=== PATIENT | male | born 1945 | race Caucasian/White ===

== ENCOUNTER 2023-10-25 09:11 | Emergency (ER) | payer OTHER, SELFPAY ==
[2023-10-25 09:14] VITALS: BP 175/89; PULSE 94; TEMP 36.7; O2SAT 97; BMI 26.1
--- NOTE | 2023-10-25 09:22 | ED_ITS ---
HPI HPI - General Adult General Chief complaint: Skin/Abscess/Foreign Body Stated complaint: FACIAL SWELLING Time Seen by Provider: 10/25/23 09:13 Source: patient Mode of arrival: walk-in Limitations: no limitations History of Present Illness HPI narrative: 78-year-old male presents for swelling to his left lower jaw which started this morning. He states it does not hurt at all, it is just swollen and it is continuous. No difficulty breathing or swallowing. No new medications. He does not seem to have any dental pain. Related Data Home Medications ?Medication ?Instructions ?Recorded ?Confirmed finasteride 5 mg tablet 5 mg PO DAILY 10/25/23 10/25/23 lisinopril 20 mg tablet 20 mg PO DAILY 10/25/23 10/25/23 metoprolol tartrate 25 mg tablet 12.5 mg PO BID 10/25/23 10/25/23 mirtazapine 15 mg tablet 15 mg PO DAILY 10/25/23 10/25/23 simvastatin 10 mg tablet 10 mg PO QPM 10/25/23 10/25/23 Previous Rx's ?Medication ?Instructions ?Recorded penicillin V potassium 250 mg 250 mg PO QID 10 days #40 tabs 10/25/23 tablet Allergies Allergy/AdvReac Type Severity Reaction Status Date / Time No Known Drug Allergies Allergy Verified 10/25/23 09:14 Opioid HPI Opioid Management Most Recent Opioid Data: No Data to Display Review of Systems ROS Narrative A ten point review of systems is negative except as noted above. Exam Narrative Exam Narrative: Nurses note and vital signs reviewed and patient is not hypoxic. General: The patient appears well and in no apparent distress. Patient is resting comfortably on cart. Skin: Warm, dry, no pallor noted. There is no rash noted. Head: Normocephalic, atraumatic Eye: Normal conjunctiva, no drainage Ears, Nose, Mouth, and Throat: oral mucosa is moist. Nares patent. Most of his teeth are missing but there is obvious dental decay in the left lower most posterior tooth. No swelling to the floor of his mouth. His left lower lip is edematous laterally. There is swelling along the left jaw area. Cardiovascular: Regular Rate and Rhythm Respiratory: Patient is in no distress, no accessory muscle use, lungs are clear to auscultation, no wheezing, rales or rhonchi Back: non-tender GI: Normal bowel sounds, no tenderness to palpation, no masses appreciated. No rebound, guarding, or rigidity noted. Musculoskeletal: The patient has no evidence of calf tenderness, no pitting edema, symmetrical pulses noted bilaterally Neurological: A&O, normal speech Psychiatric: Cooperative Constitutional Vital Signs, click to edit/add: Last Vital Signs Temp 98.0 F 10/25/23 09:14 Pulse 94 H 10/25/23 09:14 Resp 18 10/25/23 09:14 BP 175/89 H 10/25/23 09:14 Pulse Ox 97 10/25/23 09:14 Course Vital Signs Vital signs: Vital Signs Temperature 98.0 F 10/25/23 09:14 Pulse Rate 94 H 10/25/23 09:14 Respiratory Rate 18 10/25/23 09:14 Blood Pressure 175/89 H 10/25/23 09:14 Pulse Oximetry 97 10/25/23 09:14 Temperature 98.0 F 10/25/23 09:14 Pulse Rate 94 H 10/25/23 09:14 Respiratory Rate 18 10/25/23 09:14 Blood Pressure 175/89 H 10/25/23 09:14 Pulse Oximetry 97 10/25/23 09:14 Medical Decision Making MDM Narrative Medical decision making narrative: CT Skin: Shows stranding but no abscess. He was given IV Unasyn and discharged home on prednisone and instructed to have follow-up with his dentist. Treatment diagnosis and follow-up were discussed with the patient. Lab Data Lab results reviewed: Yes I reviewed the patient's lab results Labs: Lab Results 10/25/23 Range/Units 09:30 WBC 7.9 (4.0-11.0) 10^3/uL RBC 4.91 (4.70-6.10) 10^6/uL Hgb 15.4 (14.0-18.0) g/dL Hct 45.9 (42.0-54.0) % MCV 93.5 (80.0-94.0) fL MCH 31.4 (25.9-34.0) pg MCHC 33.6 (29.9-35.2) g/dL RDW 12.8 (11.0-15.0) % Plt Count 208 (150-450) 10^3/uL MPV 12.0 (9.5-13.5) fL Neut % (Auto) 48.2 (43.0-75.0) % Lymph % (Auto) 40.3 (20.5-60.0) % [place] % (Auto) 8.7 (1.7-12.0) % Eos % (Auto) 1.4 (0.9-7.0) % Baso % (Auto) 0.5 (0.2-2.0) % Neut # (Auto) 3.8 (1.4-6.5) 10^3/uL Lymph # (Auto) 3.2 (1.2-3.8) 10^3/uL [place] # (Auto) 0.7 (0.3-0.8) 10^3/uL Eos # (Auto) 0.1 (0.0-0.7) 10^3/uL Baso # (Auto) 0.0 (0.0-0.1) 10^3/uL Abs Immat Gran (auto) 0.07 H (0.00-0.03) 10^3/uL Imm/Tot Granulo (auto) 0.9 H (0.0-0.5) % Sodium 131 L (136-145) mmol/L Potassium 4.7 (3.5-5.1) mmol/L Chloride 97 L (98-107) mmol/L Carbon Dioxide 23.7 (21.0-32.0) mmol/L Anion Gap 15.0 BUN 21.0 H (7.0-18.0) mg/dL Creatinine 1.32 H (0.70-1.30) mg/dL Est GFR ( Amer) >60 (>=60) Est GFR (Non-Af Amer) 52 L (>=60) BUN/Creatinine Ratio 15.9 Glucose 118 H (74-106) mg/dL Calcium 9.0 (8.5-10.1) mg/dL Imaging Data CT facial bones: Radiologist's impression: ITS Impressions Facial Bones CT 10/25/23 10:18 IMPRESSION: Left facial soft tissue swelling consistent with cellulitis. No focal abscess is observed Electronically authenticated by: TAMMY RUBIO Date: 10/25/2023 10:53 Discharge Plan Discharge Stand Alone Forms: Portal Instructions Chief Complaint: Skin/Abscess/Foreign Body Clinical Impression: Dental infection Patient Disposition: Home, Self-Care Time of Disposition Decision: 11:33 Condition: Good Mode of Transportation: Private Vehicle Prescriptions / Home Meds: New penicillin V potassium 250 mg tablet 250 mg PO QID 10 Days Qty: 40 0RF No Action finasteride 5 mg tablet 5 mg PO DAILY simvastatin 10 mg tablet 10 mg PO QPM metoprolol tartrate 25 mg tablet 12.5 mg PO BID mirtazapine 15 mg tablet 15 mg PO DAILY lisinopril 20 mg tablet 20 mg PO DAILY Print Language: Albanian Instructions: Cellulitis (ED) Referrals: Physician,Non-Staff, MD [Primary Care Provider] - 1 week
[2023-10-25 09:58] LABS: Basophils Percent Auto 0.5 % (0.2-2.0); Eosinophils Absolute Auto 0.1 10^3/uL (0.0-0.7); Eosinophils Percent Auto 1.4 % (0.9-7.0); Hematocrit 45.9 % (42.0-54.0); Hemoglobin 15.4 g/dL (14.0-18.0); Immature Granulocytes Abs Auto 0.07 10^3/uL (0.00-0.03); Immature Granulocytes Pct Auto 0.9 % (0.0-0.5); Lymphocytes Absolute Auto 3.2 10^3/uL (1.2-3.8); Lymphocytes Percent Auto 40.3 % (20.5-60.0); Mean Corpuscular HGB Conc 33.6 g/dL (29.9-35.2); Mean Corpuscular Hemoglobin 31.4 pg (25.9-34.0); Mean Corpuscular Volume 93.5 fL (80.0-94.0); Monocytes Absolute Auto 0.7 10^3/uL (0.3-0.8); Monocytes Percent Auto 8.7 % (1.7-12.0); Neutrophils Absolute Auto 3.8 10^3/uL (1.4-6.5); Neutrophils Percent Auto 48.2 % (43.0-75.0); Platelet Count 208 10^3/uL (150-450); Red Blood Count 4.91 10^6/uL (4.70-6.10); Red Cell Distribution Width 12.8 % (11.0-15.0); White Blood Count 7.9 10^3/uL (4.0-11.0)
[2023-10-25 10:04] LABS: BUN Creatinine Ratio 15.9; Carbon Dioxide 23.7 mmol/L (21.0-32.0); Chloride 97 mmol/L (98-107); Estimated GFR (African America >60 (>=60); Estimated GFR (Non-African Ame 52 (>=60); Glucose 118 mg/dL (74-106); Potassium 4.7 mmol/L (3.5-5.1); Sodium 131 mmol/L (136-145)
--- NOTE | 2023-10-25 10:18 | CT_ITS ---
The [address] [address] Patient Name: RACHEL NAGY MRN: [id number] date: 1945 Sex: M Assigned Patient Location: ER Current Patient Location: ED.MAIN Accession/Order Number: [id number] Exam Date: 10/25/2023 10:13 Report Date: 10/25/2023 10:53 At the request of: JESSIE ZAZEUTA Procedure: CT facial bones w con EXAMINATION: CT facial bones w con HISTORY: Swelling to left jaw, possible dental abscess COMPARISON: No relevant comparison available. TECHNIQUE: Axial, Coronal, and Sagittal CT images created with IV contrast. Dose reduction techniques were achieved by using automated exposure control and/or adjustment of mA and/or kV according to patient size and/or use of iterative reconstruction technique. FINDINGS: FACIAL BONES: No bony lesion or fracture. SINUSES: No visible mass, significant fluid or mucosal thickening. NASAL FOSSA: No mass, fracture, or significant septal deviation. SKULL BASE: No mass or bone destruction. ORBITS: No visible mass, hematoma, edema or fracture. CAVERNOUS SINUS: No visible lesion, symmetric appearance. SALIVARY GLANDS: No mass. Unremarkable parotid and submandibular glands. OTHER: Asymmetric moderate left facial soft tissue swelling extending from the mid line to the left parotid gland involving the maxilla mandible extending to the inferior nose. Associated skin thickening and subcutaneous stranding is noted with no focal fluid collection to suggest an abscess CT/CT facial bones w con IMPRESSION: Left facial soft tissue swelling consistent with cellulitis. No focal abscess is observed Electronically authenticated by: TAMMY RUBIO Date: 10/25/2023 10:53
[2023-10-25] MEDS: AMPICILLIN SODIUM/SULBACTAM NA 1.5 GM in 0.9 % SODIUM CHLORIDE 50 ML IV (11:25)
[2023-10-25 12:03] VITALS: BP 133/76; PULSE 74; O2SAT 97
== END 2023-10-25 12:05 | disposition home or self-care (01) ==
PROVIDERS: Emergency Provider Emergency Medicine
DX: K04.7 Periapical abscess without sinus (principal); Z79.899 Other long term (current) drug therapy
CPT/HCPCS: 36415; 70487; 80048; 85025; 96374; 99285; Q9967

== ENCOUNTER 2023-12-16 23:33 | Emergency (ER) | payer OTHER, SELFPAY ==
[2023-12-16 23:36] VITALS: BP 163/102; PULSE 83; TEMP 36.7; O2SAT 96; BMI 26.5
[2023-12-16 23:40] VITALS: BP 163/102
[2023-12-16 23:45] VITALS: PULSE 80
--- NOTE | 2023-12-16 23:45 | ECG_ITS ---
The [facility] Test Date: 2023-12-16 Pat Name: RACHEL NAGY Department: Room: - Gender: Male Patient Access Registrar: : 1945 Requested By: [id number] Order Number: [id number] Reading MD: ANNALEE TORREZ Measurements Intervals [place] Rate: 75 P: 68 GA: 164 QRS: 62 QRSD: 76 T: 62 QT: 390 QTc: 419 Interpretive Statements 1100 Sinus rhythm 1102 Sinus arrhythmia 9110 normal ECG Compared to ECG 11/11/2020 09:44:38 No significant changes Electronically Signed On 12-17-2023 6:55:24 EDT by ANNALEE TORREZ
[2023-12-16 23:50] VITALS: PULSE 77
--- NOTE | 2023-12-16 23:53 | CT_ITS ---
The [address] [address] Patient Name: RACHEL NAGY MRN: [id number] date: 1945 Sex: M Assigned Patient Location: ER Current Patient Location: ER Accession/Order Number: [id number] Exam Date: 12/16/2023 23:59 Report Date: 12/17/2023 00:39 At the request of: TOMMY CARRASCO Procedure: CT head/brain wo con INDICATION: 78 years old; Male. Onset of vertigo with prior history of vertigo. TECHNIQUE: CT Head (ax/cor/sag reformats). Ionizing radiation dose reduced via iterative reconstruction/FBP blend and body size kV/mA adjustment. Comparison: None FINDINGS: POSTOPERATIVE CHANGES: None. BRAIN PARENCHYMA: No intraparenchymal or extra-axial hemorrhage. No mass effect. No midline shift or herniation. Subtle patchy low-density in the white matter without mass effect. VENTRICLES/EXTRA-AXIAL SPACES: Enlarged, consistent with atrophy. SINUSES/MASTOIDS: Mucoperiosteal thickening is seen within ethmoid sinuses on the left. Maxillary sinuses are not completely included. Lisa bullosa bilaterally. Mastoids and middle ears are clear. MSK: No displaced or depressed calvarial fracture. OTHER: No hyperdense intraluminal thrombus. Vascular calcifications are present. Degenerative changes are present in the temporomandibular joints. CT/CT head/brain wo con IMPRESSION: 1. No acute intracranial abnormality. No hemorrhage or mass effect. 2. Nonspecific white matter changes. 3. Atrophy. 4. Vascular calcification. Electronically authenticated by: CAREY JOSEPH Date: 12/17/2023 00:39
--- NOTE | 2023-12-16 23:55 | ED_ITS ---
HPI - Dizziness General Chief Complaint: Dizziness Stated Complaint: DIZZY Time Seen by Provider: 12/16/23 23:46 Source: patient Mode of arrival: walk-in Limitations: no limitations History of Present Illness HPI Narrative: history of vertigo about 6 years ago. Tonight while laying down in bed room spins. feels better sitting up. no headache, ear pain or vision complaint. No weakness of the upper or lower extremities. No fever Related Data Home Medications ?Medication ?Instructions ?Recorded ?Confirmed finasteride 5 mg tablet 5 mg PO DAILY 10/25/23 12/16/23 lisinopril 20 mg tablet 20 mg PO DAILY 10/25/23 12/16/23 metoprolol tartrate 25 mg tablet 12.5 mg PO BID 10/25/23 12/16/23 mirtazapine 15 mg tablet 15 mg PO DAILY 10/25/23 10/25/23 simvastatin 10 mg tablet 10 mg PO QPM 10/25/23 12/16/23 Allergies Allergy/AdvReac Type Severity Reaction Status Date / Time No Known Drug Allergies Allergy Verified 12/16/23 23:43 Review of Systems ROS Status of ROS 10 or more systems reviewed and unremark able except as noted in history and below Exam Constitutional Vital Signs, click to edit/add: Last Vital Signs Temp 98.1 F 12/16/23 23:36 Pulse 83 12/16/23 23:36 Resp 18 12/16/23 23:36 BP 163/102 H 12/16/23 23:36 Pulse Ox 96 12/16/23 23:36 O2 Del Method Room Air 12/16/23 23:36 Common normals: no apparent distress, average body habitus, oriented x3, no limitations, healthy appearing, alert and well nourished [facility] Common normals: normocephalic and head/scalp atraumatic Eye Common normals: EOMs intact bilaterally and conjunctivae normal Respiratory Common normals: normal respiratory effort, no retractions, no use of accessory muscles and clear to auscultation bilaterally Cardio Common normals: regular rate, regular rhythm, S1 normal heart sound and S2 normal heart sound GI Common normals: Normal to inspection, nondistended, normoactive bowel sounds present Extremity Common normals: normal to inspection and full ROM Neuro Common normals: oriented x3, CN's II-XII intact bilaterally and moves all extremities Psych Appearance: grossly normal Course Vital Signs Vital signs: Vital Signs Temperature 98.1 F 12/16/23 23:36 Pulse Rate 83 12/16/23 23:36 Respiratory Rate 18 12/16/23 23:36 Blood Pressure 163/102 H 12/16/23 23:36 Pulse Oximetry 96 12/16/23 23:36 Oxygen Delivery Method Room Air 12/16/23 23:36 Temperature 98.1 F 12/16/23 23:36 Pulse Rate 83 12/16/23 23:36 Respiratory Rate 18 12/16/23 23:36 Blood Pressure 163/102 H 12/16/23 23:36 Pulse Oximetry 96 12/16/23 23:36 Oxygen Delivery Method Room Air 12/16/23 23:36 MDM - Dizziness MDM Narrative Medical decision making narrative: presents with vertiginous dizziness that is reproducible when he lays down. able to sit up and symptoms are better. No headache or ear pain. exam neg. CT brain without acute findings . labs acceptable and no findings that would explain symptoms. Treated for vertigo and is feeling better. No longer dizzy. Discharged home with prednisone and antivert Lab Data Labs: Lab Results 12/17/23 Range/Units 00:00 WBC 5.7 (4.0-11.0) 10^3/uL RBC 4.50 L (4.70-6.10) 10^6/uL Hgb 14.3 (14.0-18.0) g/dL Hct 41.7 L (42.0-54.0) % MCV 92.7 (80.0-94.0) fL MCH 31.8 (25.9-34.0) pg MCHC 34.3 (29.9-35.2) g/dL RDW 12.4 (11.0-15.0) % Plt Count 193 (150-450) 10^3/uL MPV 11.2 (9.5-13.5) fL Neut % (Auto) 61.0 (43.0-75.0) % Lymph % (Auto) 26.5 (20.5-60.0) % [place] % (Auto) 9.0 (1.7-12.0) % Eos % (Auto) 2.3 (0.9-7.0) % Baso % (Auto) 0.5 (0.2-2.0) % Neut # (Auto) 3.4 (1.4-6.5) 10^3/uL Lymph # (Auto) 1.5 (1.2-3.8) 10^3/uL [place] # (Auto) 0.5 (0.3-0.8) 10^3/uL Eos # (Auto) 0.1 (0.0-0.7) 10^3/uL Baso # (Auto) 0.0 (0.0-0.1) 10^3/uL Abs Immat Gran (auto) 0.04 H (0.00-0.03) 10^3/uL Imm/Tot Granulo (auto) 0.7 H (0.0-0.5) % Sodium 132 L (136-145) mmol/L Potassium 3.6 (3.5-5.1) mmol/L Chloride 98 (98-107) mmol/L Carbon Dioxide 26.9 (21.0-32.0) mmol/L Anion Gap 10.7 BUN 14.0 (7.0-18.0) mg/dL Creatinine 0.96 (0.70-1.30) mg/dL Est GFR ( Amer) >60 (>=60) Est GFR (Non-Af Amer) >60 (>=60) BUN/Creatinine Ratio 14.6 Glucose 137 H (74-106) mg/dL Calcium 8.4 L (8.5-10.1) mg/dL Imaging Data CT scan - head: Radiologist's impression: ITS Impressions Head CT 12/16/23 23:53 IMPRESSION: 1. No acute intracranial abnormality. No hemorrhage or mass effect. 2. Nonspecific white matter changes. 3. Atrophy. 4. Vascular calcification. Electronically authenticated by: CAREY JOSEPH Date: 12/17/2023 00:39 Discharge Plan Discharge Stand Alone Forms: Portal Instructions Chief Complaint: Dizziness Clinical Impression: Benign paroxysmal positional vertigo Patient Disposition: Home, Self-Care Prescriptions / Home Meds: No Action finasteride 5 mg tablet 5 mg PO DAILY simvastatin 10 mg tablet 10 mg PO QPM metoprolol tartrate 25 mg tablet 12.5 mg PO BID mirtazapine 15 mg tablet 15 mg PO DAILY lisinopril 20 mg tablet 20 mg PO DAILY Print Language: Mongolian Instructions: Benign Paroxysmal Positional Vertigo (ED) Additional Instructions: follow up with family doctor next week Referrals: Physician,Non-Staff, MD [Primary Care Provider] - 1 week
[2023-12-17] VITALS (13 sets, daily range): BP systolic 151; BP diastolic 85; PULSE 65–82
[2023-12-17] MEDS: MECLIZINE HCL 12.5 MG TABLET 25 MG PO ×2 (00:05→01:51)
[2023-12-17] MEDS: METHYLPREDNISOLONE SOD SUCC PF 125 MG/2 ML VIAL IVP (00:05)
[2023-12-17] MEDS: LORAZEPAM 2 MG/ML VIAL 0.5 MG IV (00:06)
[2023-12-17 00:10] LABS: Basophils Percent Auto 0.5 % (0.2-2.0); Eosinophils Absolute Auto 0.1 10^3/uL (0.0-0.7); Eosinophils Percent Auto 2.3 % (0.9-7.0); Hematocrit 41.7 % (42.0-54.0); Hemoglobin 14.3 g/dL (14.0-18.0); Immature Granulocytes Abs Auto 0.04 10^3/uL (0.00-0.03); Immature Granulocytes Pct Auto 0.7 % (0.0-0.5); Lymphocytes Absolute Auto 1.5 10^3/uL (1.2-3.8); Lymphocytes Percent Auto 26.5 % (20.5-60.0); Mean Corpuscular HGB Conc 34.3 g/dL (29.9-35.2); Mean Corpuscular Hemoglobin 31.8 pg (25.9-34.0); Mean Corpuscular Volume 92.7 fL (80.0-94.0); Mean Platelet Volume 11.2 fL (9.5-13.5); Monocytes Absolute Auto 0.5 10^3/uL (0.3-0.8); Neutrophils Absolute Auto 3.4 10^3/uL (1.4-6.5); Platelet Count 193 10^3/uL (150-450); Red Cell Distribution Width 12.4 % (11.0-15.0); White Blood Count 5.7 10^3/uL (4.0-11.0)
[2023-12-17 00:23] LABS: Anion Gap 10.7; BUN Creatinine Ratio 14.6; Calcium 8.4 mg/dL (8.5-10.1); Carbon Dioxide 26.9 mmol/L (21.0-32.0); Chloride 98 mmol/L (98-107); Estimated GFR (African America >60 (>=60); Estimated GFR (Non-African Ame >60 (>=60); Glucose 137 mg/dL (74-106); Potassium 3.6 mmol/L (3.5-5.1); Sodium 132 mmol/L (136-145)
== END 2023-12-17 01:59 | disposition home or self-care (01) ==
PROVIDERS: Emergency Provider Internal Medicine
DX: H81.10 Benign paroxysmal vertigo, unspecified ear (principal)
CPT/HCPCS: 36415; 70450; 80048; 85025; 93005; 96374; 96375; 99285; J2919

== ENCOUNTER 2024-01-01 11:49 | Emergency (ER) | payer OTHER, SELFPAY ==
[2024-01-01 11:55] VITALS: BP 172/78; PULSE 89; O2SAT 97; BMI 26.5
--- OUTSIDE RECORDS SUMMARY | 2024-01-01 11:57 | XMS_ITS | CCD ---
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 Name Role Phone TAMMY MERINO Primary Care Physician Zach, DO Tammy Mattson Primary Care Provider Zach, DO Tammy Mattson Attending Provider [phone] REQUEST, DR ORTIZ LISTED Primary Care Unavaila edgar BOYER, JOHNATHAN RANGEL Consulting Unavailable DIAB, CHRISTIAN Admitting Unavailable DIAB, CHRISTIAN Attending Unavailable NILL, DR PATINO Admitting Unavailable NILL, DR PATINO Attending Unavailable MISC, DR MENON Primary Care Unavailable NILL, DR PATINO Consulting Unavailable DEGROH, DR TAMMY Mattson Consulting Unavailable Medications Current Medications Medication Drug Class(es) Dates Sig (Normalized) Sig (Original) finasteride 5 mg oral tablet (1 source) 5-alpha Reductase Inhibitor Start: 01-22-2020 take 1 tablet by mouth once daily finasteride 5 mg Tab 5 mg = 1 tab(s), Oral, Daily, Refills(s) 0 Start Date: 01/22/20 Status: Ordered metoprolol tartrate 25 mg oral tablet (1 source) beta-Adrenergic Vahe Start: 01-22-2020 Metoprolol tartrate 25 mg Tab 12.5 mg = 0.5 tab(s), Oral, Daily, Refills(s) 0 Start Date: 01/22/20 Status: Ordered simvastatin 20 mg oral tablet (1 source) HMG-CoA Reductase Inhibitor Start: 01-22-2020 take 1 tablet by mouth once daily at bedtime simvastatin 20 mg Tab 20 mg = 1 tab(s), Oral, Once a day (at bedtime), Refills(s) 0 Start Date: 01/22/20 Status: Ordered Completed/Discontinued Medications Medication Drug Class(es) Dates Sig (Normalized) Sig (Original) Cholecalciferol (1 source) Vitamin D Start: 01-22-2020 take 1 tablet by mouth once daily cholecalciferol 400 intl units oral tablet 400 International_Unit = 1 tab(s), Oral, Daily, Refills(s) 0 Start Date: 01/22/20 Status: Ordered Problems Active Problems Problem Classification Problem Date Documented Da te Episodic/Chronic Abdominal hernia (2 sources) Obstructed inguinal hernia; Translations: [Right inguinal hernia ] 01-26-2020 Episodic Other nutritional; endocrine; and metabolic disorders (1 source) Body mass index 25-29 - overweight 11-12-2021 Episodic Other skin disorders (1 source) Epidermoid cyst; Translations: [Epidermal cyst] Onset: 12-17-2021 Episodic Other skin disorders (1 source) Epidermoid cyst of skin 11-12-2021 Episodic Residual codes; unclassified (1 source) Tobacco user 10-08-2020 Episodic Past or Other Problems Problem Classification Problem Date Documented Da te Episodic/Chronic Nonmalignant breast conditions (4 sources) Other benign mammary dysplasias of right breast; Translations: [Mastodynia] Onset: 12-03-2021 Episodic Other skin disorders (1 source) Epidermal cyst; Translations: [EPIDERMAL CYST] Onset: 12-10-2021 Episodic Results Test Name Value Interpretation Reference Range Facil ity CT chest wo conon 02-18-2022 CT chest wo con [facility] [address] CT Scan Report Signed Patient: Rachel Nagy MR#: [id number] : 1945 Acct:[id number] Age/Sex: 77 / M ADM Date: 02/18/22 Loc: CT Room: Type: [facility] Attending Dr: Tammy Merino DO Copies to: Tammy Merino DO Ordering Provider: Tamym Merino DO Date of Service: 02/18/22 CT/CT chest wo con: HX SMOKING CT CHEST WITHOUT CONTRAST COMPARISON: 02/06/2021 CLINICAL DATA: Follow-up pulmonary nodules. Spiral unenhanced images were obtained through the chest. Images were reviewed using both narrow and wide window settings. This CT exam was performed using one or more following dose reduction techniques: Automated exposure control, adjustment of the mA and/or kV according to patient size, or use of iterative reconstruction technique. The heart is normal size. No pericardial effusion is present. Coronary artery calcification and or stents are seen. There is no aortic aneurysm. There is plaque at the aorta and proximal great vessels. There are small nonpathologic mediastinal and axillary lymph nodes. There is mild bilateral gynecomastia. The subcutaneous nodule at the superior right breast on the prior is no longer identified and may been surgically removed. A second subcutaneous nodule with associated calcification at the lower anterior left chest is again seen and is unchanged. There is a tiny hiatal hernia. There is minor endplate spurring at the spine. Mild scarring is seen at the lung apices. There is also minor scarring or atelectasis at the lower lungs. There are airspace lucencies compatible with obstructive disease. No consolidation or pleural effusion is identified. The left apical nodular density on the comparison is not obvious today. There is a stable 3 mm nodule at the right upper lobe on axial image 14 and a 3 mm pleural- based nodular density at the superior segment of the right lower lobe on axial image 25. There is a potential punctate nodular density within the right lower lobe on axial image 30 that was also seen on the prior. No new nodules are identified. Limited cuts through the upper abdomen show additional atherosclerotic plaque involving the aorta and proximal visceral arteries. There is slight adrenal limb thickening. There is a potential small right renal cyst. CT/CT chest wo con IMPRESSION: STABLE RIGHT LUNG NODULES. OBSTRUCTIVE LUNG DISEASE. MINIMAL SCARRING OR ATELECTASIS. Impression dictated by: Domi Lincoln M.D.02/18/2022 2:44 PM Dictation Location: [place] [address] Transcribed By: [facility] 02/18/22 1444 Dictated By: Domi Lincoln MD 02/18/22 1425 Signed By: 02/18/22 1444 [facility] Ambulatory Visit Summaryon 0 12-17-2021 Ambulatory Visit Summary YAKOVRACHEL :1945 Visit Date:12/17/2021 Ambulatory Visit Instructions Your Care Team Attending Physician - JATINDER SANTANA, Carey Tobin Primary Care Physician - TAMMY MERINO DO This Is Your Medications List cholecalciferol (cholecalciferol 400 intl units oral tablet) finasteride (finasteride 5 mg Tab) metoprolol (Metoprolol tartrate 25 mg Tab) simvastatin (simvastatin 20 mg Tab) Procedures Performed Excision sebaceous cyst (12/03/2021), Repair of left inguinal hernia (01/19/2020), Bilateral cataracts, Repair of right inguinal hernia. Medications What How Much When Instructions Unchanged cholecalciferol (cholecalciferol 400 intl units oral tablet) 1 Tablets By Mouth Every day Unchanged finasteride (finasteride 5 mg Tab) 1 Tablets By Mouth Every day Unchanged metoprolol (Metoprolol tartrate 25 mg Tab) 0.5 Tablets By Mouth Every day Unchanged simvastatin (simvastatin 20 mg Tab) 1 Tablets By Mouth Once a day (at bedtime) Allergies No Known Allergies No Known Medication Allergies Problems Ongoing - Any problem that you are currently receiving treatment for. BMI 25.0-25.9,adult Epidermal cyst Inguinal hernia of left side with obstruction Reducible right inguinal hernia Tobacco abuse Normal [facility] Gen Surg Video Visit - Teleh adithya 12-17-2021 Gen Surg Video Visit - Telehealth Chief Complaint post operative follow up HPI Staff 14 day post operative follow up post excisional biopsy sebaceous cyst right breast. Denies discomfort, bleeding or drainage. Sutures intact. History of Present Illness 2 weeks s/p excisional biopsy large right breast sebaceous cyst; doing well, no pain, some itching of incision, no drainage; pathology consistent with epidermal cyst. Review of Systems ROS - Provider Constitutional: no fever, no sweats, no weight loss. Eyes: no glasses, no blurred vision, no visual loss. ENMT: no dentures, no hoarseness, no swallowing difficulties, no hearing loss, no ear infection(s), no nose bleeds. Cardiovascular: normal blood pressure, no chest pain, regular heartbeat, no heart murmur. Respiratory: no shortness of breath, no cough, no asthma, no wheezing. Gastrointestinal: no nausea, no vomiting, no diarrhea, no constipation, no blood in stool, no change in bowel habits, no abdominal pain, no hepatitis. Genitourinary: no kidney stones, no urine infection, no dysuria. Musculoskeletal: no pain, no weakness. Skin: no changing moles, no rash, no skin lumps. Neurologic: no seizures, no epilepsy, no headache. Psychiatric: no emotional or psychiatric problem. Heme/Lymph: no bleeding problems, no anemia, no blood clots, no transfusions. Allergy/Immunologic: no swollen lymph nodes/glands, no IV drug abuse. Other: Additional ROS info: Except as noted in the above Review of Systems and in the History of Present Illness, all other systems have been reviewed and are negative or noncontributory. Physical Exam skin: incision healing well, no erythema or drainage; no ecchymoses. Assessment/Plan 1. Epidermal cyst (L72.0: Epidermal cyst) doing well, sutures removed; follow up as needed. Follow-up No qualifying data available Problem List/Past Medical History Ongoing BMI 25.0-25.9,adult Epidermal cyst Inguinal hernia of left side with obstruction Reducible right inguinal hernia Tobacco abuse Historical No qualifying data Procedure/Surgical History Excision sebaceous cyst (12/03/2021), Repair of left inguinal hernia (01/19/2020), Bilateral cataracts, Repair of right inguinal hernia. Medications cholecalciferol 400 intl units oral tablet, 400 International_Unit= 1 tab(s), Oral, Daily finasteride 5 mg Tab, 5 mg= 1 tab(s), Oral, Daily Metoprolol tartrate 25 mg Tab, 12.5 mg= 0.5 tab(s), Oral, Daily simvastatin 20 mg Tab, 20 mg= 1 tab(s), Oral, Once a day (at bedtime) Allergies No Known Allergies No Known Medication Allergies Social History Alcohol Current, Beer, Daily, 01/22/2020 Substance Abuse - Denies Substance Abuse, 01/22/2020 Tobacco 10 or more cigarettes (1/2 pack or more)/day in last 30 days Tobacco Use:. Never Smokeless Tobacco Use:. Cigarettes, 1 per day. Started age 18.0 Years. Yes, 11/12/2021 Family History Family history is negative Normal [facility] Comment on above: Result Comment: Elec tronically Signed By: JATINDER SANTANA, Carey Mahmood\Date and Time Signed: 12/17/21 14:57 EDT General Surgery Office/Clini c Noteon 12-17-2021 General Surgery Office/Clinic Note Chief Complaint post operative follow up HPI Staff 14 day post operative follow up post excisional biopsy sebaceous cyst right breast. Denies discomfort, bleeding or drainage. Sutures intact. Assessment/Plan 1. Epidermal cyst (L72.0: Epidermal cyst) Follow-up No qualifying data available Problem List/Past Medical History Ongoing BMI 25.0-25.9,adult Epidermal cyst Inguinal hernia of left side with obstruction Reducible right inguinal hernia Tobacco abuse Historical No qualifying data Procedure/Surgical History Excision sebaceous cyst (12/03/2021), Repair of left inguinal hernia (01/19/2020), Bilateral cataracts, Repair of right inguinal hernia. Medications cholecalciferol 400 intl units oral tablet, 400 International_Unit= 1 tab(s), Oral, Daily finasteride 5 mg Tab, 5 mg= 1 tab(s), Oral, Daily Metoprolol tartrate 25 mg Tab, 12.5 mg= 0.5 tab(s), Oral, Daily simvastatin 20 mg Tab, 20 mg= 1 tab(s), Oral, Once a day (at bedtime) Allergies No Known Allergies No Known Medication Allergies Social History Alcohol Current, Beer, Daily, 01/22/2020 Substance Abuse - Denies Substance Abuse, 01/22/2020 Tobacco 10 or more cigarettes (1/2 pack or more)/day in last 30 days Tobacco Use:. Never Smokeless Tobacco Use:. Cigarettes, 1 per day. Started age 18.0 Years. Yes, 11/12/2021 Family History Family history is negative [facility] Comment on above: Result Comment: Elec tronically Signed By: JATINDER SANTANA, Carey Mahmood\Date and Time Signed: 12/17/21 14:59 EDT Pathology Noteon 12-09-2021 Pathology Note [id number] .[id number]:127 [facility] Operative Reporton Operative Report [id number] .00CD:127 [facility] Pre-Authorization for Medica l Treatmenton 11-25-2021 Pre-Authorization for Medical Treatment [id number] .00CD:127 [facility] Consent for Procedure/Surger yon 11-13-2021 Consent for Procedure/Surgery [id number] .00CD:127 [facility] Facesheeton 11-13-2021 Facesheet [id number] .[id number]:[address] [facility] Physician Referralon 022 Physician Referral [id number]. 00CD:[address] [facility] Ambulatory Clinical Summaryo n 01-10-2021 Ambulatory Clinical Summary {[id number] Normal [facility] General Surgery Office/Clini c Noteon 01-10-2021 General Surgery Office/Clinic Note HPI Staff patient here for 7 week follow up s/p RIH repair done 11/20/20 still has some tenderness but otherwise doing well History of Present Illness 7 weeks s/p RIHR with mesh, doing well, no pain or drainage, no bulge; doing normal activities. Review of Systems ROS - Provider Constitutional: no fever, no sweats, no weight loss. Eyes: no glasses, no blurred vision, no visual loss. ENMT: no dentures, no hoarseness, no swallowing difficulties, no hearing loss, no ear infection(s), no nose bleeds. Cardiovascular: normal blood pressure, no chest pain, regular heartbeat, no heart murmur. Respiratory: no shortness of breath, no cough, no asthma, no wheezing. Gastrointestinal: no nausea, no vomiting, no diarrhea, no constipation, no blood in stool, no change in bowel habits, no abdominal pain, no hepatitis. Genitourinary: no kidney stones, no urine infection, no dysuria. Musculoskeletal: no pain, no weakness. Skin: no changing moles, no rash, no skin lumps. Neurologic: no seizures, no epilepsy, no headache. Psychiatric: no emotional or psychiatric problem. Heme/Lymph: no bleeding problems, no anemia, no blood clots, no transfusions. Allergy/Immunologic: no swollen lymph nodes/glands, no IV drug abuse. Other: Additional ROS info: Except as noted in the above Review of Systems and in the History of Present Illness, all other systems have been reviewed and are negative or noncontributory. Physical Exam abd: soft, normal bs, nontender, nondistended, incision without erythema or drainage, no ecchymoses; no recurrent hernia. Assessment/Plan 1. Reducible right inguinal hernia (K40.90: Unilateral inguinal hernia, without obstruction or gangrene, not specified as recurrent) doing well; continue regular activities; follow up as needed; call with problems/questions. Follow-up No qualifying data available Problem List/Past Medical History Ongoing Inguinal hernia of left side with obstruction Reducible right inguinal hernia Tobacco abuse Historical No qualifying data Procedure/Surgical History Repair of left inguinal hernia (01/19/2020), Bilateral cataracts, Repair of right inguinal hernia. Medications cholecalciferol 400 intl units oral tablet, 400 International_Unit= 1 tab(s), Oral, Daily finasteride 5 mg Tab, 5 mg= 1 tab(s), Oral, Daily hydrochlorothiazide-l isinopril 12.5 mg-20 mg Tab, 0.5 tab, Oral, Daily Metoprolol tartrate 25 mg Tab, 12.5 mg= 0.5 tab(s), Oral, Daily simvastatin 20 mg Tab, 20 mg= 1 tab(s), Oral, Once a day (at bedtime) Allergies No Known Allergies No Known Medication Allergies Social History Alcohol Current, Beer, Daily, 01/22/2020 Substance Abuse - Denies Substance Abuse, 01/22/2020 Tobacco 10 or more cigarettes (1/2 pack or more)/day in last 30 days Tobacco Use:. Never Smokeless Tobacco Use:. Cigarettes, Started age 18.0 Years. Yes, 12/13/2020 Family History Family history is negative Normal [facility] Comment on above: Result Comment: Elec tronically Signed By: JATINDER SANTANA, Carey Tobin\.br\Date and Time Signed: 01/10/21 09:14 EDT Encounters Encounter Date Encounter Type Care Provider Facility Start: 07-28-2022 End: 07-28-[address] NONE LISTED REQUEST Facility: Start: 02-18-2022 End: 02-18-2022 Patient encounter procedure DO Tammy Merino Work Phone: -CT Scan [facility] [place] Start: 12-17-2021 End: 12-17-2021 Patient encounter procedure Carey TOBIAS General Surgery [facility] [place] Start: 12-03-2021 End: 12-03-[address] CAREY TOBIAS Facility:[facility] Procedures Date Procedure Procedure Detail Performing Clinician Start: 02-18-2022 CT of chest without contrast DO Tammy Merino Work Phone: Start: 12-03-2021 Excision of sebaceou s cyst Carey SABATwila Comment on above: right breast Start: 01-19-2020 Repair of left ingui nal hernia Carey TOBIAS Bilateral cataracts (disorder) Carey TOBIAS Repair of right ingu inal hernia Carey SABATwila Payers Date Payer Category Payer Unknown [id number] 1945 Unknown [id number] 1945 Unknown [id number] Self-pay Self Pay [id number] Social History Date Type Detail Facility Start: 11-12-2021 Tobacco smoking status Heavy t obacco smoker (finding) General [facility] Tobacco smoking status Never Gener al Surgery [place] Sex Assigned At Male Genera l Surgery [place] Start: 1945 Sex Assigned At Male F [facility] Clinical Note 12-03-2021 Note Date & Type Note Facility 12-03-2021 Note OPERATIVE NOTE OPERATION DATE: 12/03/2021 PREOPERATIVE DIAGNOSIS: Enlarging, painful sebaceous cyst of the right breast. POSTOPERATIVE DIAGNOSIS: Enlarging, painful sebaceous cyst of the right breast. PROCEDURE: Excisional biopsy of sebaceous cyst right breast. ANESTHESIA: Local with 0.5% Marcaine plain. INCISION LENGTH: Total length of the incision was 5 cm. INDICATIONS AND CONSENT: Patient is a 76-year-old male with a long history of enlarging, painful sebaceous cyst with a small open scab superior and lateral to the right nipple. Indications, risks, benefits, alternatives of proceeding with excisional biopsy under local anesthesia were explained extensively to the patient, including risks of bleeding, infection, scarring, pain, recurrence and need for further surgery. All of his questions were answered. Informed consent was obtained. PROCEDURE: Patient brought to the operating room, placed in the supine position. The area was prepped and draped in the usual sterile fashion, was anesthetized with 0.5% Marcaine plain. It was excised in elliptical fashion, encompassing the open scabbed area. Total length of the incision was 5 cm. Was carefully dissected free from the subcutaneous tissue and send off to Pathology. Wound was irrigated. Subcutaneous tissue was re-approximated with interrupted 3-0 Monocryl suture. The skin was then closed with 3-0 nylon horizontal mattress suture as well as 4-0 nylon simple sutures. Sterile pressure dressing was applied. Sponge and needle counts correct x2 per nursing personnel. Patient tolerated procedure well. ESTIMATED BLOOD LOSS: Less than 2 mL. CC: Tammy Merino M.D. [facility] Signed and Approved by: DR CAREY TOBIAS . 12/10/2021 08:31:00 [facility] Clinical Note 11-12-2021 Note Date & Type Note Facility 11-12-2021 Note Chief Complaint consultation for chest wall cyst HPI Staff 76 year old male [facility] wall/breast. Noted mass several years ago. Has not increased in size. Denies this being painful. He used to manipulate the area and express white material, he has not done this in quite some time. Never spontaneously drained. History of Present Illness 76 yo male with h/o htn, hyperlipidemia, COPD, tobacco use, referred for large cyst right breast; present for many years, patient had expressed material from area in past; no episodes of infection; area increased in size lately, and has dry scab over area now. no asa or NSAID use; Review of Systems PHQ Score Initial Depression Screen Score: 0 ROS - Provider Constitutional: no fever, no sweats, no weight loss. Eyes: no glasses, no blurred vision, no visual loss. ENMT: no dentures, no hoarseness, no swallowing difficulties, no hearing loss, no ear infection(s), no nose bleeds. Cardiovascular: normal blood pressure, no chest pain, regular heartbeat, no heart murmur. Respiratory: no shortness of breath, no cough, no asthma, no wheezing. Gastrointestinal: no nausea, no vomiting, no diarrhea, no constipation, no blood in stool, no change in bowel habits, no abdominal pain, no hepatitis. Genitourinary: no kidney stones, no urine infection, no dysuria. Musculoskeletal: yes pain, no weakness. Skin: no changing moles, no rash, yes skin lumps. Neurologic: no seizures, no epilepsy, no headache. Psychiatric: no emotional or psychiatric problem. Heme/Lymph: no bleeding problems, no anemia, no blood clots, no transfusions. Allergy/Immunologic: no swollen lymph nodes/glands, no IV drug abuse. Other: Additional ROS info: Except as noted in the above Review of Systems and in the History of Present Illness, all other systems have been reviewed and are negative or noncontributory. ! Physical Exam Vitals & Measurements HR: 68(Peripheral) RR: 16 BP: 122/66 HT: 180.34 cm HT: 180.3 cm WT: 82.9 kg WT: 82.9 kg BMI: 25.49 HEENT: normal conjunctiva, sclera clear, no scleral icterus, EOM intact, PERRLA, oral mucosa moist without lesions. Neck: trachea midline, no mass, symmetric, no thyromegaly or nodules, no adenopathy Respiratory: lungs CTA, respirations non labored. Cardiovascular: regular rate and rhythm, no murmur, no pedal edema or varicosities. Lymphatic: no cervical adenopathy, Musculoskeletal: abnormal gait, digits and nails without infection, nodes, cyanosis, clubbing. Skin: no rashes, no lesions, no ulcers, right medial breast with 3 cm sebaceous cyst with 8 mm central scab, no drainage or fluctuance, no erythema. Psychiatric/Neuro: oriented to time, place, person, judgement normal, affect appropriate for age, insight intact, no focal deficits. Tests: review of old records completed, Discussed surgical options, risks, and possible complications with patient. Assessment/Plan 1. Epidermal cyst (L72.0: Epidermal cyst) plan excisional biopsy under local anesthesia at [facility], informed consent obtained. Follow-up No qualifying data available Problem List/Past Medical History Ongoing BMI 25.0-25.9,adult Epidermal cyst Inguinal hernia of left side with obstruction Reducible right inguinal hernia Tobacco abuse Historical No qualifying data Procedure/Surgical History Repair of left inguinal hernia (01/19/2020), Bilateral cataracts, Repair of right inguinal hernia. Medications cholecalciferol 400 intl units oral tablet, 400 International_Unit= 1 tab(s), Oral, Daily finasteride 5 mg Tab, 5 mg= 1 tab(s), Oral, Daily Metoprolol tartrate 25 mg Tab, 12.5 mg= 0.5 tab(s), Oral, Daily simvastatin 20 mg Tab, 20 mg= 1 tab(s), Oral, Once a day (at bedtime) Allergies No Known Allergies No Known Medication Allergies Social History Alcohol Current, Beer, Daily, 01/22/2020 Substance Abuse - Denies Substance Abuse, 01/22/2020 Tobacco 10 or more cigarettes (1/2 pack or more)/day in last 30 days Tobacco Use:. Never Smokeless Tobacco Use:. Cigarettes, 1 per day. Started age 18.0 Years. Yes, 11/12/2021 Family History Family history is negative [facility] Comment on above: Result Comment: Elec tronically Signed By: JATINDER SANTANA, Carey Mahmood\Date and Time Signed: 11/12/21 16:48 EDT Evaluation + Plan note Note Date & Type Note Facility Evaluation + Plan note No data available for this section General Surgery [place] Evaluation note Note Date & Type Note Facility Evaluation note No assessment information availa [facility] Work Phone: Hospital Discharge instructions Note Date & Type Note Facility Hospital Discharge instructions No data available for this section General Surgery [place] Summary Purpose Family History No Family History Records FoundNo Family History Records FoundNo Family History Records Found Advance Directives No Advanced Directives Records Found Advance Directive Response Recorded Date/ Time Advance Directives No January 13 2 4:06pm Chief Complaint and Reason for Visit Chief Complaint fup lung nodules Additional Source Comments (unrecognized sect ion and content) No Status Records FoundNo Status Records FoundNo Status Records Found INFORMATION SOURCE (unrecogn ized section and content) DATE CREATED AUTHOR 12/18/2021 Navid Bartholomew [facility] DATE CREATED AUTHOR AUTHOR'S ORGANIZ ATION 03/04/2022 [facility] DATE CREATED AUTHOR AUTHOR'S ORGANIZ ATION 07/29/2022 [facility] Care Teams (unrecognized sec tion and content) Team Status: Inactive Member Role Status Dates Tammy Merino DO Primary Care Provider, Attending Deepika murdock Active Team Status: Active Member Role Status Dates Tammy Merino , Primary Care Provider Active Goals (unrecognized section and content) Goals may be documented in a n alternate section FOR RECORDS PERTAINING TO PATIENTS WHO ARE OR HAVE BEEN ENROLLED IN A CHEMICAL DEPENDENCY/SUBSTANCEABUSE PROGRAM, SOME INFORMATION MAY BE OMITTED. This clinical summary was aggregated from multiple sources. Caution should be exercised in using it in the provision of clinical care. This summary normalizes information from multiple sources, and as a consequence, information in this document may materially change the coding, format and clinical context of patient data. In addition, data may be omitted in some cases. CLINICAL DECISIONS SHOULD BE BASED ON THE PRIMARY CLINICAL RECORDS. [employer] provides no warranty or guarantee of the accuracy or completeness of information in this document.
[2024-01-01 11:58] VITALS: TEMP 36.7
--- NOTE | 2024-01-01 12:42 | ED_ITS ---
HPI HPI - General Adult General Chief complaint: Dental/Oral Stated complaint: FACIAL SWELLING Time Seen by Provider: 01/01/24 12:42 Source: patient Mode of arrival: walk-in Limitations: no limitations History of Present Illness HPI narrative: This patient is here complaining swelling of his upper lip. He was seen at this emergency room previously and was told that he had a dental action. This swelling is altogether different. Additionally, he had his tooth pulled and was doing good until the swelling developed over the last 24 hours. He is in fact on lisinopril and has been on that for a number of years. He has not lost his voice he has no difficulty swallowing speaking chewing or breathing. He has no wheezing or congestion in his lungs. He has no whelps hives swelling or itching of the extremities. Related Data Home Medications ?Medication ?Instructions ?Recorded ?Confirmed finasteride 5 mg tablet 5 mg PO DAILY 10/25/23 01/01/24 lisinopril 20 mg tablet 20 mg PO DAILY 10/25/23 01/01/24 metoprolol tartrate 25 mg tablet 12.5 mg PO BID 10/25/23 01/01/24 mirtazapine 15 mg tablet 15 mg PO DAILY 10/25/23 01/01/24 simvastatin 10 mg tablet 10 mg PO QPM 10/25/23 01/01/24 Allergies Allergy/AdvReac Type Severity Reaction Status Date / Time No Known Drug Allergies Allergy Verified 12/16/23 23:43 Opioid HPI Opioid Management Most Recent Opioid Data: Last ED Pain Assessment 01/01/24 12:00 Exam Narrative Exam Narrative: Well-hydrated well-nourished male is in no distress vitals are stable. Graft HEENT examination shows the trachea to be in the midline. There is no obvious swelling of the craniofacial structures. However his upper lip is puffy. He has upper dental plate. He has no swelling of the uvula or the palate or the floor the mouth. The tongue is not swollen airway exchange is excellent with no stridor drooling or difficulty speaking and swallowing. He has no respiratory distress. Skin and integument is without any other evidence of allergic reaction. Constitutional Vital Signs, click to edit/add: Last Vital Signs Temp 98.1 F 01/01/24 11:58 Pulse 89 01/01/24 11:55 Resp 18 01/01/24 11:55 BP 172/78 H 01/01/24 11:55 Pulse Ox 97 01/01/24 11:55 O2 Del Method Room Air 01/01/24 11:55 Course Vital Signs Vital signs: Vital Signs Pulse Rate 89 01/01/24 11:55 Respiratory Rate 18 01/01/24 11:55 Blood Pressure 172/78 H 01/01/24 11:55 Pulse Oximetry 97 01/01/24 11:55 Oxygen Delivery Method Room Air 01/01/24 11:55 Temperature 98.1 F 01/01/24 11:58 Pulse Rate 89 01/01/24 11:55 Respiratory Rate 18 01/01/24 11:55 Blood Pressure 172/78 H 01/01/24 11:55 Pulse Oximetry 97 01/01/24 11:55 Oxygen Delivery Method Room Air 01/01/24 11:55 Medical Decision Making MDM Narrative Medical decision making narrative: This patient's upper lip swelling is consistent with a reaction to his ALEX inhibitor, lisinopril. Recommendations would be to discontinue the lisinopril, follow-up with his doctor early this coming week to get on different blood pressure medications we will also place him on Benadryl and steroid. Discharge Plan Discharge Stand Alone Forms: Portal Instructions Chief Complaint: Dental/Oral Clinical Impression: Allergic drug reaction Patient Disposition: Home, Self-Care Time of Disposition Decision: 12:44 Prescriptions / Home Meds: No Action finasteride 5 mg tablet 5 mg PO DAILY simvastatin 10 mg tablet 10 mg PO QPM metoprolol tartrate 25 mg tablet 12.5 mg PO BID mirtazapine 15 mg tablet 15 mg PO DAILY lisinopril 20 mg tablet 20 mg PO DAILY Print Language: Romansh Additional Instructions: Stop lisinopril, see your doctor next week to start additional medication. Prednisone and Benadryl prescribed Referrals: Physician,Non-Staff, MD [Primary Care Provider] - 1 week
[2024-01-01] MEDS: DEXAMETHASONE SOD PHOS 10 MG/ML VIAL IM (12:59)
== END 2024-01-01 13:07 | disposition home or self-care (01) ==
PROVIDERS: Emergency Provider Emergency Medicine Emergency Medical Services
DX: R22.0 Localized swelling, mass and lump, head (principal); T46.4X5A Adverse effect of angiotensin-converting-enzyme inhibitors, initial encounter
CPT/HCPCS: 96372; 99284; J1100

== ENCOUNTER 2024-11-22 12:58 | Emergency (ER) | payer OTHER, SELFPAY ==
--- NOTE | 2024-11-22 13:04 | ED.GENADUL1 ---
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 Patient with history of a chronic Rogers catheter over the past 14 years has remotely seen a urologist out of [place]. He states every 2 months his catheter is exchanged by home health nurse. He mentions today the home health nurse went to exchange the catheter and was unable to remove the tubing after deflating the balloon. He reports after a few attempts the home health nurse advised to come to the ER for further evaluation. He denies any pain. He has no concerns with the Rogers catheter otherwise. No abdominal pain or nausea/vomiting. No back or flank pain. He denies any sick symptoms of fevers or chills. Related Data Home Medications ?Medication ?Instructions ?Recorded ?Confirmed finasteride 5 mg tablet 5 mg PO DAILY 10/25/23 11/22/24 metoprolol tartrate 25 mg tablet 12.5 mg PO BID 10/25/23 11/22/24 simvastatin 10 mg tablet 10 mg PO QPM 10/25/23 11/22/24 magnesium oxide 400 mg PO DAILY 11/22/24 11/22/24 Allergies Allergy/AdvReac Type Severity Reaction Status Date / Time No Known Drug Allergies Allergy Verified 11/22/24 13:05 Review of Systems ROS Status of ROS 10 or more systems reviewed and unremarkable except as noted in history and below PFSH PFSH Social History Little interest or pleasure in doing things: not at all Feeling down, depressed, or hopeless: not at all Exam Narrative Exam Narrative: Constituational: Awake/ alert, no apparent distress, well hydrated HENMT: normocephalic, external ears normal, moist oral mucous membranes and oropharynx normal Eyes: EOMI and conjunctivae normal Neck: ROM intact Chest: inspection of chest normal Respiratory: Normal respiratory effort, clear to auscultation bilaterally Cardio: regular rate and regular rhythm GI: soft to palpation and non-tender : Normal uncircumcised, scant sanguinous discharge around urethral opening, clear yellow urine in catheter tubing leg bag Back: nontender MSK: ROM intact, +NVI Skin: no rashes or petechiae Neuro: no focal deficits Psych: mental status grossly normal Constitutional Vital Signs, click to edit/add: Last Vital Signs Temp 98.3 F 11/22/24 13:09 Pulse 100 H 11/22/24 13:09 Resp 16 11/22/24 13:09 BP 184/97 H 11/22/24 13:09 Pulse Ox 96 11/22/24 13:09 O2 Del Method Room Air 11/22/24 13:09 Course Vital Signs Vital signs: Vital Signs Temperature 98.3 F 11/22/24 13:09 Pulse Rate 100 H 11/22/24 13:09 Respiratory Rate 16 11/22/24 13:09 Blood Pressure 184/97 H 11/22/24 13:09 Pulse Oximetry 96 11/22/24 13:09 Oxygen Delivery Method Room Air 11/22/24 13:09 Temperature 98.3 F 11/22/24 13:09 Pulse Rate 100 H 11/22/24 13:09 Respiratory Rate 16 11/22/24 13:09 Blood Pressure 184/97 H 11/22/24 13:09 Pulse Oximetry 96 11/22/24 13:09 Oxygen Delivery Method Room Air 11/22/24 13:09 Medical Decision Making MDM Narrative Medical decision making narrative: Is a nontoxic appearing 79-year-old male who presented to the emergency department today for evaluation concerns for a stuck Rogers catheter . Initial examination Rogers catheter is unable to be advanced or retracted. It was irrigated profusely and is still fixed and unable to be advanced or removed. Did discuss patient's condition with Dr. Recinos ( Urology) [id number]-> recommends that this may be due to an encrusted catheter possibly from calcium buildup and advised this will likely need to go to the OR for subsequent removal. Advised that he is unable to perform this right now due to being at a different facility. Received recommendations to transfer patient to a tertiary facility for urology urgent evaluation. Subsequently spoke with Dr. Guiterrez (ER attending-[facility]) [id number] patient's condition and recommendations from urology -> accepts patient for via private vehicle to the ER for further evaluation by urology services discussed the above findings with the patient. He additionally is agreeable with the plan to transfer the above. Medical Records Medical records reviewed: Yes I reviewed the patient's medical records Discharge Plan Discharge Chief Complaint: Urogenital-Male Clinical Impression: Complication of Rogers catheter Patient Disposition: [facility]
[2024-11-22 13:09] VITALS: BP 184/97; PULSE 100; TEMP 36.8; O2SAT 96; BMI 26.9
[2024-11-22] MEDS: LIDOCAINE 2% JELLY 20 ML UR (13:38)
--- NOTE | 2024-11-22 14:03 | PC.NURSE ---
Arrives from home with c/o Berg catheter issues. Home nurse was attempting to change out Berg and was unable to remove the old one. Upon arrival patient is alert and oriented, upon and about in room. Upon inspection, berg in penis with dark red/brown drainage noted. Lidocaine gel inserted. Berg balloon deflated, catheter does NOT move inward or outward. Saline irrigation attempted without success of flushing catheter. Bladder scanned for 170CC.
[2024-11-22] MEDS: HYDROCODONE/ACET 5-325 MG TABLET 1 TAB PO (15:54)
[2024-11-22 18:08] LABS: Basophils Percent Auto 0.3 % (0.2-2.0); Eosinophils Percent Auto 0.1 % (0.9-7.0); Hematocrit 48.9 % (42.0-54.0); Hemoglobin 16.9 g/dL (14.0-18.0); Immature Granulocytes Abs Auto 0.09 10^3/uL (0.00-0.03); Immature Granulocytes Pct Auto 0.6 % (0.0-0.5); Lymphocytes Absolute Auto 1.2 10^3/uL (1.2-3.8); Mean Corpuscular HGB Conc 34.6 g/dL (29.9-35.2); Mean Corpuscular Hemoglobin 31.8 pg (25.9-34.0); Mean Corpuscular Volume 92.1 fL (80.0-94.0); Mean Platelet Volume 11.6 fL (9.5-13.5); Monocytes Absolute Auto 0.7 10^3/uL (0.3-0.8); Monocytes Percent Auto 4.3 % (1.7-12.0); Neutrophils Absolute Auto 13.3 10^3/uL (1.4-6.5); Neutrophils Percent Auto 86.7 % (43.0-75.0); Platelet Count 217 10^3/uL (150-450); Red Blood Count 5.31 10^6/uL (4.70-6.10); Red Cell Distribution Width 12.3 % (11.0-15.0); White Blood Count 15.3 10^3/uL (4.0-11.0)
[2024-11-22 18:18] LABS: Alanine Aminotransferase 17 U/L (16-63); Albumin Globulin Ratio 0.9; Albumin Level 3.5 g/dL (3.4-5.0); Alkaline Phosphatase 97 U/L (46-116); Aspartate Amino Transferase 26 U/L (15-37); BUN Creatinine Ratio 11.3; Calcium 9.4 mg/dL (8.5-10.1); Carbon Dioxide 26.9 mmol/L (21.0-32.0); Chloride 96 mmol/L (98-107); Estimated GFR (African America >60 (>=60 mL/min/1.73m^2); Estimated GFR (Non-African Ame 56 (>=60 mL/min/1.73m^2); Glucose 118 mg/dL (74-106); Potassium 3.9 mmol/L (3.5-5.1); Sodium 131 mmol/L (136-145); Total Protein 7.5 g/dL (6.4-8.2)
[2024-11-22 18:37] VITALS: BP 165/85; PULSE 113; O2SAT 95
== END 2024-11-22 18:41 | disposition short-term general hospital (02) ==
PROVIDERS: Nurse Practitioner; Emergency Provider Emergency Medicine
DX: T83.098A Other mechanical complication of other urinary catheter, initial encounter (principal)
CPT/HCPCS: 36415; 80053; 85025; 99285